=== PATIENT | male | born 1970 | race Caucasian/White ===

== ENCOUNTER 2018-04-22 17:18 | Inpatient (IN) | payer OTHER ==
[~2018-04-22] VITALS: Ht 167.6 cm; Wt 79.8 kg
[2018-04-22 17:43] VITALS: BP 117/79
--- NOTE | 2018-04-22 17:53 | NUR ---
Patient ambulated to bed 6 at this time.
--- NOTE | 2018-04-22 17:59 | NUR ---
PATIENT PRESENTS TO ED WITH THE CHIEF C/O EDEMA ON RIGHT UPPER AND LOWER EXTREMITIES, ABDOMINAL PAIN . PT'S STATED EDEMA AND PAIN STARTED SINCE MONDAY . DENIES N/V/D; SKIN IS PINK/WARM/DRY; AAOX4. LIMITED MIOBILITY OF RIGHT UPPER AND LOWER EXTREMITIES. HR EVEN AND REGULAR; PT DENIES ANY FEVER, CP, OR COUGH AT THIS TIME. STATED HAS SOB AT THIS TIME. PATIENT STATES PAIN OF 5/10 AT THIS TIME; VSS WNL. PATIENT POSITIONED FOR COMFORT; HOB ELEVATED; BEDRAILS UP X2; BED DOWN. ER MD MADE AWARE OF PT STATUS.
[2018-04-22 19:19] LABS: BASOPHILS % (AUTO) 0.5 % (0.0-2.0); HEMATOCRIT 46.2 % (36-52); HEMOGLOBIN 14.8 g/dL (12.0-18.0); LYMPHOCYTES % (AUTO) 14.8 % (20.5-51.1); MEAN CORPUSCULAR HEMOGLOBIN 29 pg (27-31); MEAN CORPUSCULAR HGB CONC 32 g/dL (33-37); MEAN CORPUSCULAR VOLUME 89.1 fL (80-94); MONOCYTES # (AUTO) 0.4 K/uL (0.8-1.0); MONOCYTES % (AUTO) 6.1 % (1.7-9.3); NEUTROPHILS # (AUTO) 5.2 K/uL (1.8-7.7); NEUTROPHILS % (AUTO) 78.6 % (42.2-75.2); PLATELET COUNT (AUTO) 224 K/uL (140-450); RED BLOOD CELL COUNT(AUTO) 5.18 MIL/uL (4.20-6.10); RED CELL DISTRIBUTION WIDTH 16.4 % (11.6-13.7); WHITE BLOOD COUNT (AUTO) 6.6 K/uL (4.8-10.8)
--- NOTE | 2018-04-22 19:26 | NUR ---
ENDORSED TO NOC SHIFT RN FOR CONTINUITY OF CARE. PT ON STABLE CONDITION.
--- NOTE | 2018-04-22 19:27 | NUR ---
RECEIVED REPORT FROM AM NURSE. PT RESTING IN BED COMFORTABLY, DENIES PAIN, RR EVEN AND UNLABORED. ALL NEEDS MET AT THIS TIME.
[2018-04-22 19:39] LABS: PROTHROMBIN TIME 12.1 secs (10.8-13.4)
[2018-04-22 19:46] LABS: ALBUMIN 2.4 g/dL (3.4-5.0); ANION GAP 15.7 (8-16); CARBON DIOXIDE 24.2 mmol/L (21-32); CREATININE 1.6 mg/dL (0.7-1.3); POTASSIUM 4.9 mmol/L (3.5-5.1); TOTAL BILIRUBIN 0.4 mg/dL (0.0-1.0)
[2018-04-22] MEDS ORDERED: SIMV20TA1 PO (20:42)
[2018-04-22] MEDS ORDERED: PHEN100C3 PO (20:42)
[2018-04-22] MEDS ORDERED: ASPI-1173 PO (20:42)
[2018-04-22] MEDS ORDERED: BENA20TA PO (20:42)
[2018-04-22] MEDS ORDERED: CARV3.12 PO (20:42)
[2018-04-22] MEDS ORDERED: ONDANSETRON 4 MG/2 ML VIAL IVP PRN (21:20)
[2018-04-22] MEDS ORDERED: FUROSEMIDE 100 MG/10 ML VIAL IV ONE (21:20)
[2018-04-22] MEDS ORDERED: ACETAMINOPHEN 325 MG TAB PO PRN (21:20)
[2018-04-22] MEDS ORDERED: DEXTROSE 50% 50 ML SYR IVP PRN (21:20)
[2018-04-22] MEDS ORDERED: HYDROcodone/APAP 5/325 MG 1 TAB TAB PO PRN ×2 (21:20)
[2018-04-22] MEDS ORDERED: FUROSEMIDE 40 MG/4 ML VIAL IVP SCH (21:20)
--- NOTE | 2018-04-22 21:55 | NUR ---
Patient will be admitted to care of DR QUACH. Admited to TELE. Will go to room 111B. Belongings list completed. Report to RAMIREZ Noble RN.
--- NOTE | 2018-04-22 22:00 | NUR ---
PT ARRIVED VIA GURNEY FROM ER. PT IS A0 X4. HIS SKIN IS INTACT. PT VSS AT THIS TIME. PT IS BEING ADMITTED FOR EXACERBATED CHF. PT HAS HISTORY OF CHF, CVA, DM HTN LA, AND SEIZURES. PT IS AMBULATORY AND WAS ABLE TO AMBULATE TO A LOW BED. SIDE RAILS UP X [address]. PT HAS NO C/O AT THIS TIME BUT RIGHT AND LEFT EXTREMITIES WELL HIS FACE IS EDEMAS.PT IS A FALL RISK DUE TO SELF CONFESSED PREVIOUS FALLS. RUE REVEALS NO DVT. PT WAS GIVEN LASIX 80MG IVP AND A URINAL WAS PLACED AT HIS BEDSIDE. CHEST X RAY REVALS CARDIOMEGALLY WITH BASILAR PNA AND OR EDEMA. PT BREATHING IS REGULAR BUT APPEARS SLIGHLYT OUT OF BREATH WHEN HAVING TO AMBULATE SHORT DISTANCES OR TALK FOR LONG PERIODS OF TIME. PT MADE COMFORTABLE AND CALL LAMA IN REACH. PT WAS GIVEN MILK AND A SANDWICH REQUESTED. ALL REQUESTED NEEDS ATTENDED BY STAFF.
[2018-04-22 22:10] LABS: BARBITURATE, URINE NEG. ng/ml (NEG <=200); BENZODIAZEPINE, URINE NEG. ng/mL (NEG <=200); CANNABINOID, URINE POS. ng/mL (NEG <=50); COCAINE, URINE NEG. ng/mL (NEG <=300); OPIATE, URINE NEG. ng/mL (NEG <=2000); PHENCYCLIDINE SCREEN,URINE NEG. ng/mL (NEG <=25)
--- NOTE | 2018-04-23 02:00 | NUR ---
PT IN LOW BED AND IS RESTING WITH NO S/S OF PAIN OR DISTRESS. EXTRA BLANKETS ADDED REQUESTED. VSS. NO S/S OF SEIZURES. PROTOCAL FOR FALL PRECAUTIONS FOLLOWED.
[2018-04-23 03:29] LABS: BASOPHILS # (AUTO) 0.1 K/uL (0.00-0.22); BASOPHILS % (AUTO) 0.9 % (0.0-2.0); HEMATOCRIT 45.3 % (36-52); HEMOGLOBIN 14.4 g/dL (12.0-18.0); LYMPHOCYTES # (AUTO) 1.4 K/uL (2.0-11.5); LYMPHOCYTES % (AUTO) 17.9 % (20.5-51.1); MEAN CORPUSCULAR HEMOGLOBIN 28 pg (27-31); MEAN CORPUSCULAR HGB CONC 32 g/dL (33-37); MEAN CORPUSCULAR VOLUME 88.4 fL (80-94); MONOCYTES # (AUTO) 0.4 K/uL (0.8-1.0); MONOCYTES % (AUTO) 5.2 % (1.7-9.3); NEUTROPHILS # (AUTO) 5.8 K/uL (1.8-7.7); PLATELET COUNT (AUTO) 239 K/uL (140-450); RED BLOOD CELL COUNT(AUTO) 5.12 MIL/uL (4.20-6.10); RED CELL DISTRIBUTION WIDTH 16.2 % (11.6-13.7); WHITE BLOOD COUNT (AUTO) 7.6 K/uL (4.8-10.8)
[2018-04-23 03:38] LABS: ALBUMIN 2.4 g/dL (3.4-5.0); ANION GAP 13.8 (8-16); CARBON DIOXIDE 23.7 mmol/L (21-32); CREATININE 1.5 mg/dL (0.7-1.3); MAGNESIUM 1.6 mg/dL (1.8-2.4); POTASSIUM 4.5 mmol/L (3.5-5.1); TOTAL BILIRUBIN 0.4 mg/dL (0.0-1.0)
[2018-04-23 03:47] LABS: CREATINE KINASE MB 2.7 ng/mL (0-3.6)
--- NOTE | 2018-04-23 04:30 | NUR ---
PT IN BED ASLEEP BUT AROUSABLE TO NAME NO C/O VOICED AT THIS TIME. SEZUIRE PRECAUTIONS IN PLACE AND BED LOW WITH BED ALARM ON. CALL LAMA IN REACH.
[2018-04-23] MEDS: BLOOD GLUCOSE MONITORING 1 DEV DEV FS SCH ×4 (07:30→21:34)
--- NOTE | 2018-04-23 07:35 | NUR ---
RECEIVED PT FROM RN ADMISSION NURSE, PT IS AWAKE LYING ON THE BED WITH A LEFT AC G. 20 IV SALINE LOCK., SIDE RAILS ARE UP AND CALL LIGHT WITHIN REACH, SEIZURE AND FALL PRECAUTION ENFORCED. BLOOD GLUCOSE CHECK DONE RESULT IS 96. NO INSULIN COVERAGE NEEDED. NO SIGN OF DISTRESS NOTED. WILL MONITOR.
[2018-04-23] MEDS ORDERED: ENOXAPARIN 30 MG/0.3 ML SYR SUBQ SCH (09:00)
[2018-04-23] MEDS: ASPIRIN 81 MG TAB.CHEW PO SCH (10:25)
[2018-04-23] MEDS: FUROSEMIDE 40 MG/4 ML VIAL IVP SCH (10:25)
--- NOTE | 2018-04-23 10:26 | NUR ---
PATIENT HAS BEEN SCREENED AND CATEGORIZED HIGH NUTRITION RISK. PATIENT WILL BE SEEN WITHIN 1-2 DAYS OF ADMISSION. 04/23/18 04/24/[address]
--- NOTE | 2018-04-23 10:40 | NUR ---
DR. QAUCH VISITED AND TALKED TO THE PT. PT RESPONDED APPROPRIATELY. NO SIGN OF DISTRESS NOTED, WILL MONITOR.
[2018-04-23] MEDS ORDERED: APIXABAN 2.5 MG TAB PO SCH (11:46)
--- NOTE | 2018-04-23 12:13 | NUR ---
ECHO SEEN BY Janene JAMES AT BEDSIDE DUE TO CRITICAL FINDING.
[2018-04-23 12:20] LABS: CREATINE KINASE MB 2.7 ng/mL (0-3.6)
--- NOTE | 2018-04-23 12:30 | NUR ---
TRIP FROM LAB CALLED AND REPORTED THE PT'S TROPONIN LEVEL OF 0.379. ACKNOWLEDGED AND WILL INFORM THE MD.
--- NOTE | 2018-04-23 12:55 | NUR ---
INFORMED DR. QUACH AND DR. LICEA OF THE PT'S TROPONIN LEVEL, DOCTORS ACKNOWLEDGED.
[2018-04-23] MEDS: INSULIN LISPRO SLIDING SCALE 100 UNITS/ML VIAL SUBQ PRN (13:58)
[2018-04-23] MEDS ORDERED: MAG SULF 2000 MG/WATER PREMIX 50 ML IV SCH (15:00)
--- NOTE | 2018-04-23 15:58 | NUR ---
FAXED INITIAL REVIEW TO [facility] [phone] PHONE GENEVIEVE [phone] RECEIVED ORDER TO GET AUTHORIZATION FOR FRANCISCOQUIS. I CALLED [facility] AND SPOKE WITH GENEVIEVE. THE PATIENT IS COVERED FOR THIS QUANTITY DOSE, IF 2L.5MG, 62 FOR 31 DAYS FOR 5MG TABL 76 TABLE FOR [address] QUACH. I SPOKE WITH MING FROM [facility] AND SHE SAID THAT THE DOCTOR MUST WRITE THE REASON FOR THIS MEDICATION ON THE PRESCRIPTION, IT CANNOT BE FOR A FIB. WILL CALL DR. QUACH. Addendum: 04/23/18 at 1603 by Patty Rosales CM I SPOKE WITH GENEVIEVE FROM [facility] AND SHE SAID THAT THE MEDICATION GOES THROUGH [facility].
--- NOTE | 2018-04-23 17:45 | NUR ---
AUBREY FROM LAB CALLED AND REPORTED THE CRITICAL VALUE OF TROPONIN WHICH IS 0.718. ACKNOWLEDGED AND WILL INFORM
--- NOTE | 2018-04-23 17:55 | NUR ---
SPOKE TO DR. LICEA AND INFORMED ABOUT THE PT'S TROPONIN LEVEL, ACKNOWLEDGED.
--- NOTE | 2018-04-23 19:25 | NUR ---
ENDORSED PT TO RING PACKER NURSE FOR CONTINUITY OF CARE. PT IS STABLE AT THIS TIME WITH FAMILY ON THE BEDSIDE.
--- NOTE | 2018-04-23 19:25 | NUR ---
RECEIVED REPORT FROM MAKAYLA QIU DAY SHIFT NURSE AT BEDSIDE FOR CONTINUITY OF CARE. PT IN LOW BED WITH BED ALARM ON AND CALL LAMA IN REACH. FAMILY AT BEDSIDE. PT IS ALERT AND ORIENTED WITH NO COMPLAINTS OF PAIN AT THIS TIME. PT IS AWARE OF THE STRICT I AND O STATUS. PT RIGHT UPPER AND LOWER EXTREMITIES STILL EXHIBIT NON PITTING EDEMA BUT CAP REFILL IS LESS THAN 3 SECONDS. PT VSS STABLE T 98.6 P 94 R 20 B/P 121/92. 02 IS 98% WITH R/A. IV SITE R AC AT 18 G. IV SITE IS SALINE LOCKED. IV SITE IS ASYMPTOMATIC.
[2018-04-23] MEDS: APIXABAN 2.5 MG TAB PO SCH (20:49)
--- NOTE | 2018-04-23 21:30 | NUR ---
JEANNE AND PT EXPLAINED THAT PT HAD BEEN TAKING A HIGHER DOSE OF DILANTIN AT HOME BUT SHE WAS UNSURE OF THE MILIGRAMS, SHE SAID THAT SHE WOULD CALL THE HOSPITAL BACK AND TELL PRIMARY NURSE THE MILIGRAMS THAT HE WAS TAKING AT HOME [place] PT AND BELIEVE THAT HE HAD BEEN TAKING 500MG OF DILANTIN AT HOME. PT ALSO GIVEN A HAT FOR THE TOILET TO MEASURE THE OUT PUT DURING THE SHIFT. PT AWARE THAT HE NEEDS TO USE THE HAT TO MEASURE OUTPUT. WILL CONTINUE TO MONITOR THE OUT PUT OF PT. PT HAS NO C/O VOICED AT THIS TIME. NIKKI FROM RADIOLOGY AT BEDSIDE TO DO A KIDNEY SCAN ORDERED BY PRIMARY DOCTOR, MAIN.
[2018-04-23] MEDS: CARVEDILOL 3.125 MG TAB PO SCH (21:35)
[2018-04-23] MEDS: PHENYTOIN 100 MG CAPER PO SCH (21:35)
--- NOTE | 2018-04-24 00:30 | NUR ---
pt resting in bed watching tv no s/s of distress noted pt in tele monitoring with nsr with bbb.
--- NOTE | 2018-04-24 04:00 | NUR ---
pt in bed sleeping soundly side rails up x [address] pt in low bed with alarm on.
[2018-04-24 06:00] VITALS: BP 123/96
--- NOTE | 2018-04-24 06:00 | NUR ---
pt in stable condition report given to elvira rn day nurse, call placed to pulmonary group regarding pt dilantin medication. awaiting call back from dr. Bashir process control engineer physican.
[2018-04-24] MEDS: BLOOD GLUCOSE MONITORING 1 DEV DEV FS SCH ×2 (06:16→11:46)
--- NOTE | 2018-04-24 07:30 | NUR ---
RECEIVED PT FROM ACCOUNT RECEIVABLE CLERK NURSE, PT IS AWAKE , ALERT, OX4, SITTING UP AT EDGE OF BED. WITH A LEFT AC 20G, PATENT, INTACT, SL. RIGHT SIDE WEAKNESS NOTED. PT STATED HX STROKE IN 2003. CALL LIGHT WITHIN REACH, SEIZURE AND FALL PRECAUTION IN PLACE. NO SIGN OF DISTRESS NOTED ON ROOM AIR. WILL CONTINUE TO MONITOR PT.
[2018-04-24 08:00] VITALS: BP 126/94
--- NOTE | 2018-04-24 08:00 | NUR ---
PT STATED RIGHT SIDE EDEMA IMPROVING A LOT.
[2018-04-24 08:08] LABS: BASOPHILS % (AUTO) 0.4 % (0.0-2.0); HEMATOCRIT 47.4 % (36-52); HEMOGLOBIN 15.2 g/dL (12.0-18.0); LYMPHOCYTES # (AUTO) 1.3 K/uL (2.0-11.5); LYMPHOCYTES % (AUTO) 21.1 % (20.5-51.1); MEAN CORPUSCULAR HEMOGLOBIN 28 pg (27-31); MEAN CORPUSCULAR HGB CONC 32 g/dL (33-37); MEAN CORPUSCULAR VOLUME 88.3 fL (80-94); MONOCYTES # (AUTO) 0.4 K/uL (0.8-1.0); MONOCYTES % (AUTO) 5.7 % (1.7-9.3); NEUTROPHILS # (AUTO) 4.6 K/uL (1.8-7.7); NEUTROPHILS % (AUTO) 72.8 % (42.2-75.2); PLATELET COUNT (AUTO) 238 K/uL (140-450); RED BLOOD CELL COUNT(AUTO) 5.36 MIL/uL (4.20-6.10); RED CELL DISTRIBUTION WIDTH 15.9 % (11.6-13.7); WHITE BLOOD COUNT (AUTO) 6.3 K/uL (4.8-10.8)
[2018-04-24 08:21] LABS: ALBUMIN 2.5 g/dL (3.4-5.0); ANION GAP 16.1 (8-16); CREATININE 1.6 mg/dL (0.7-1.3); POTASSIUM 5.1 mmol/L (3.5-5.1); TOTAL BILIRUBIN 0.5 mg/dL (0.0-1.0)
[2018-04-24] MEDS: PHENYTOIN 100 MG CAPER PO SCH (09:54)
[2018-04-24] MEDS: ASPIRIN 81 MG TAB.CHEW PO SCH (09:54)
[2018-04-24] MEDS: CARVEDILOL 3.125 MG TAB PO SCH (09:55)
[2018-04-24] MEDS: FUROSEMIDE 40 MG/4 ML VIAL IVP SCH (09:56)
[2018-04-24] MEDS: APIXABAN 2.5 MG TAB PO SCH (09:56)
[2018-04-24] MEDS ORDERED: CARV3.12 PO (10:05)
[2018-04-24] MEDS ORDERED: APIX5TAB PO (10:05)
[2018-04-24] MEDS ORDERED: FURO-570 PO (10:07)
[2018-04-24] MEDS ORDERED: PNEUMOCOCCAL VACCINE 23 MCG/0.5 ML VIAL IMVAC SCH (11:25)
[2018-04-24] MEDS: INSULIN LISPRO SLIDING SCALE 100 UNITS/ML VIAL SUBQ PRN (11:48)
[2018-04-24 12:00] VITALS: BP 118/92
--- NOTE | 2018-04-24 14:00 | NUR ---
PT DISCHARGED PER MD ORDER. DISCHARGE INSTRUCTIONS AND MED TEACHING GIVEN. PT IS AWARE OF THAT HE NEEDS FOLLOW UP APPT FOR EDUCATION AND DEVELOPMENT MANAGER, CUSHION INSTALLER AND NEUROLOGIST. PT STATED HE ALREADY MADE APPT WITH HIS PCP AND WILL GET REFERRAL FOR THEM. RX FOR ELIQUIS AND LASIX PROVIDED TO PT. PT IS AWARE THAT HE NEEDS TO START LASIX TOMORROW AND ELIQUIS TONIGHT. IV CATH DC'D, TIP INTACT, PRESSURE APPLIED. TOLD PT THAT HE IS ON BLOOD THINNER. KEEP THE GAUZE ON FOR AT LEAST 4 HOURS. NO SHOWER BEFORE THAT. PT VERBALIZED UNDERSTANDING. PT LEFT WITH ALL HIS BELONGINGS AND IN STABLE CONDITION.
--- NOTE | 2018-04-24 15:38 | NUR ---
VERBAL REPORT CALLED TO GENEVIEVE FROM [facility] [phone]
[2018-04-24 19:12] LABS: TOTAL PROTEIN URINE 115.3 MG/DL
== END 2018-04-24 14:00 | disposition home or self-care (01) | DRG 291 ==
LOC: MED 17:18 → MTU 21:35
PROVIDERS: ADMIT Hospitalist; ATTEND Hospitalist
PROC: 3E0234Z Introduction of Serum, Toxoid and Vaccine into Muscle, Percutaneous Approach (ICD-10-PCS; principal; 2018-04-24)
DX: I13.0 Hypertensive heart and chronic kidney disease with heart failure and stage 1 through stage 4 chronic kidney disease, or unspecified chronic kidney disease (principal); J96.00 Acute respiratory failure, unspecified whether with hypoxia or hypercapnia; E43 Unspecified severe protein-calorie malnutrition; I50.43 Acute on chronic combined systolic (congestive) and diastolic (congestive) heart failure; I24.8 Other forms of acute ischemic heart disease; N17.9 Acute kidney failure, unspecified; I69.351 Hemiplegia and hemiparesis following cerebral infarction affecting right dominant side; I42.0 Dilated cardiomyopathy; E83.42 Hypomagnesemia; G40.909 Epilepsy, unspecified, not intractable, without status epilepticus; Z68.28 Body mass index [BMI] 28.0-28.9, adult; F15.90 Other stimulant use, unspecified, uncomplicated; N18.9 Chronic kidney disease, unspecified; E11.649 Type 2 diabetes mellitus with hypoglycemia without coma; Z79.899 Other long term (current) drug therapy; Z90.49 Acquired absence of other specified parts of digestive tract; Z23 Encounter for immunization
CPT/HCPCS: 36415; 71045; 76770; 80053; 80305; 82550; 82553; 82570; 82948; 83605; 83735; 83880; 84156; 84484; 85025; 85610; 85730; 87040; 87081; 90732; 93005; 93971; 96374; 99285; J1650; J1815; J1940; J3475; J7030; Q0092